=== PATIENT | female | born 1930 | race Caucasian/White ===

== ENCOUNTER → 2016-07-17 | Outpatient (CLI) | payer MEDICARE, BC ==
--- NOTE | 2016-07-19 18:41 | XCELERA REPORT ---
[address] [address] Lower Extremity Arterial Evaluation Name: BRADLEY HA Age: 86 yrs Gender: Female : 1930 Patient Status: Outpatient Patient Location: [facility] Study Date: 07/17/2016 11:07 AM Procedure: A color flow and duplex scan of the lower extremity arteries was performed bilaterally with velocity and waveform anaylsis. Ankle brachial indicies performed. Reason For Study: PVD Ordering Physician: CÉSAR RIGGS Performed By: Regi Colón Measurements and Calculations Right Left HAY SORTER PSV 123.6 143.0 cm/sec Prox PFA PSV -131.3 -87.1 cm/sec Prox SFA PSV 139.7 103.1 cm/sec Mid SFA PSV -127.1 -215.1 cm/sec Dist SFA PSV -105.9 -94.8 cm/sec Prox Pop A PSV 93.7 101.2 cm/sec Dist MARISELA PSV 61.6 65.1 cm/sec Prox DEVELOPER PROVER UPHOLSTERING PSV 118.0 40.7 cm/sec Mid DEVELOPER PROVER UPHOLSTERING PSV 30.8 cm/sec Dist DEVELOPER PROVER UPHOLSTERING PSV 50.6 -67.6 cm/sec Dist Vincent A PSV -66.7 78.6 cm/sec Albin Pedis PSV 50.6 71.9 cm/sec Right Side Arterial Evaluation Normal velocity and biphasic waveforms noted from the Common Femoral artery to the infrageniculate vessels. 20-49 % stenosis at the inflow arteries. Ankle Brachial index is 0.82. Left Side Arterial Evaluation Normal velocity and triphasic waveforms noted from the Common Femoral artery to the infrageniculate vessels. 20-49 % stenosis at the inflow arteries. Ankle Brachial index was not obtainable, non compressible. Interpretation Summary Moderate hemodynamically significant lesions in the bilateral lower extremities, on duplex imaging, at rest. : CÉSAR RIGGS [place]
== END ==
LOC: SP 10:43
PROVIDERS: ATTEND Family Medicine
DX: I73.9 Peripheral vascular disease, unspecified (principal); M79.89 Other specified soft tissue disorders
CPT/HCPCS: 93925

== ENCOUNTER → 2019-09-22 | Outpatient (CLI) | payer MEDICARE, BC ==
--- NOTE | 2019-09-22 22:44 | XCELERA REPORT ---
[address] [address] Transthoracic Echocardiogram Report Name: BRADLEY HA Age: 89 yrs Gender: Female : 1930 Patient Status: Outpatient Patient Location: Study Date: 09/22/2019 08:01 AM Height: 61 in Weight: 124 lb BSA: 1.5 m2 Procedure: A two-dimensional transthoracic echocardiogram with color flow and Doppler was performed. The study was technically difficult with many images being suboptimal in quality. Reason For Study: MURMUR History: MURMUR. Ordering Physician: CÉSAR RIGGS Performed By: Faby Jameson Interpretation Summary The left ventricle is normal in size. LV EF is 65% Left ventricular systolic function is normal. LV diastolic function could not be adequately assessed. The left ventricular wall motion is normal. There is no thrombus. Probably no ASD,VSD ,or PFO seen. The right ventricle is normal in size and function. The right atrium is normal. The left atrial size is normal. There is mild to moderate mitral annular calcification. There is no evidence of mitral valve prolapse. There is no vegetation seen on the mitral valve. There is no mitral valve stenosis. There is a trace amount of mitral regurgitation There is no aortic valvular vegetation. There is no aortic valve stenosis There is aortic sclerosis without aortic stenosis. No aortic regurgitation is present. There is a trace amount of tricuspid regurgitation Right ventricular systolic pressure is normal. RVSP is normal at 16.5 to 21.5 mm of Hg with RA mean of 5 to 10. There is no pulmonic valvular stenosis. There is a mild amount of pulmonic regurgitation The aortic root is normal size. The inferior vena cava appeared normal and decreased > 50% with respiration (RAP 5-10 mmHg) There is no pericardial effusion. MMode/2D Measurements & Calculations RVDd: 1.5 cm LVIDd: 3.9 cm FS: 38.6 % Ao root diam: 2.3 cm IVSd: 1.1 cm LVIDs: 2.4 cm EDV(Teich): 66.0 ml Ao root area: 4.3 cm2 LVPWd: 0.95 cm ESV(Teich): 20.0 ml EF(Teich): 69.6 % Doppler Measurements & Calculations MV E max mirian: MV dec slope: Ao V2 max: LV V1 max P.6 cm/sec 547.4 cm/sec2 122.5 cm/sec 6.7 mmHg MV A max mirian: MV dec time: Ao max PG: LV V1 max: 114.6 cm/sec 0.21 sec 6.0 mmHg 129.1 cm/sec MV E/A: 1.0 PA V2 max: PI end-d mirian: TR max mirian: 85.5 cm/sec 102.3 cm/sec 169.4 cm/sec PA max P.9 mmHg TR max P.5 mmHg Left Ventricle The left ventricle is normal in size. There is normal left ventricular wall thickness. LV EF is 65%. Left ventricular systolic function is normal. LV diastolic function could not be adequately assessed. The left ventricular wall motion is normal. There is no thrombus. Probably no ASD,VSD ,or PFO seen. Right Ventricle The right ventricle is normal in size and function. Atria The right atrium is normal. The left atrial size is normal. Mitral Valve There is mild to moderate mitral annular calcification. There is no evidence of mitral valve prolapse. There is no vegetation seen on the mitral valve. There is no mitral valve stenosis. There is a trace amount of mitral regurgitation. Aortic Valve There is no aortic valvular vegetation. There is no aortic valve stenosis. There is aortic sclerosis without aortic stenosis. No aortic regurgitation is present. Tricuspid Valve There is no tricuspid stenosis. There is a trace amount of tricuspid regurgitation. Right ventricular systolic pressure is normal. RVSP is normal at 16.5 to 21.5 mm of Hg with RA mean of 5 to 10. Pulmonic Valve There is no pulmonic valvular stenosis. There is a mild amount of pulmonic regurgitation. Great Vessels The aortic root is normal size. The inferior vena cava appeared normal and decreased > 50% with respiration (RAP 5-10 mmHg). Effusions There is no pericardial effusion. : CÉSAR RIGGS Lakshmi
== END ==
LOC: SP 08:45
PROVIDERS: ATTEND Family Medicine
DX: R01.1 Cardiac murmur, unspecified (principal); I10 Essential (primary) hypertension
CPT/HCPCS: 93306